=== PATIENT | male | born 1930 | race Caucasian/White ===

== ENCOUNTER 2017-04-07 09:10 | Inpatient (IN) | payer OTHER, MEDICAID ==
[~2017-04-07] VITALS: Ht 170.2 cm; Wt 71.0 kg
[~2017-04-07 09:10] MED LIST: ARICEPT10 MG PO; BENAZEPRIL HYDR20 M1 PO; BENAZEPRIL HYDR40 M1 PO; BENZONATATE200 MG PO; FLA500 PO; GLIPIZIDE10 M2 PO; GLU10 PO; GLU10XL PO; GLU500 PO; LAC PO; LANTI SQ; LEVAQUIN750 MG PO; LEVOFLOXACIN500 M1 PO; LOT10 PO; METFORMIN ER500 M1 PO; MUCINEX600 MG PO; NAMENDA10 M2 PO; PLA75 PO; PRO40 PO; PROAIR HFA0.09 MG/A1 INH; SIMVASTATIN20 M1 PO; TOP50 PO; XALATAN2.5 ML OU; XALOS OU; ZOC20 PO
[2017-04-07 10:14] LABS: BASOPHIL % 0.5 % (0-2); PLATELET COUNT 198 x10^3mcL (130-400)
[2017-04-07 10:22] LABS: RED CELL DISTRIBUTION WIDTH 14.9 % (11.5-14.5)
[2017-04-07 11:08] LABS: CALCIUM 9.2 mg/dL (8.5-10.1); CARBON DIOXIDE 24.8 mmol/L (21-32); CHLORIDE SERUM 100 mmol/L (98-107); CREATININE SERUM 1.2 mg/dL (0.7-1.3); GLUCOSE SERUM 166 mg/dL (74-106); POTASSIUM SERUM 4.2 mmol/L (3.5-5.1); SODIUM SERUM 136 mmol/L (136-145)
[2017-04-07 11:13] LABS: ALBUMIN 3.7 g/dL (3.4-5.0); ALKALINE PHOSPHATASE 95 U/L (46-116); ALT/SGPT 33 U/L (16-63); AST/SGOT 44 U/L (15-37); BILIRUBIN TOTAL 0.63 mg/dL (0.20-1.00); CHOLESTEROL 130 mg/dL (<200); HDL CHOLESTEROL 52 mg/dL (40-60); TOTAL PROTEIN, SERUM 7.1 g/dL (6.4-8.2)
[2017-04-07 12:34] LABS: microscopic required? YES; urine erythrocyte NEGATIVE (NEGATIVE)
[2017-04-07] MEDS ORDERED: HUMALOG100 U/ML SC (13:56)
[2017-04-07] MEDS ORDERED: BENAZEPRIL HYDR20 M1 PO (13:57)
[2017-04-07] MEDS ORDERED: RANITIDINE HCL150 M1 (13:58)
[2017-04-07 15:06] VITALS: BP 119/70
[2017-04-07 15:32] LABS: T3 TOTAL 1.06 ng/mL
[2017-04-07 15:43] LABS: PHOSPHOROUS 3.5 mg/dL (2.5-4.9)
[2017-04-07 15:45] LABS: CHOLESTEROL/HDL RATIO 2.5; FREE T4 1.15 ng/dL (0.76-1.46); FREE THYROXINE INDEX 3.3 ug/dL (1.4-4.5); T4(THYROXINE) 8.8 ug/dL (4.7-13.3)
[2017-04-07 21:01] VITALS: BP 131/61
[2017-04-08 05:48] VITALS: BP 112/49
[2017-04-08 09:53] VITALS: BP 117/55
[2017-04-08 11:21] VITALS: Ht 170.2 cm; Wt 71.0 kg
[2017-04-08 13:32] VITALS: BP 123/54
[2017-04-08 17:51] VITALS: BP 145/51
[2017-04-08 21:08] VITALS: BP 156/64
[2017-04-09] VITALS (8 sets, daily range): BP systolic 121–159; BP diastolic 63–76
[2017-04-09 06:40] LABS: BASOPHIL % 0.5 % (0-2); PLATELET COUNT 133 x10^3mcL (130-400)
[2017-04-09 06:45] LABS: RED CELL DISTRIBUTION WIDTH 15.4 % (11.5-14.5)
[2017-04-09 06:53] LABS: CALCIUM 8.3 mg/dL (8.5-10.1); CARBON DIOXIDE 25.9 mmol/L (21-32); CHLORIDE SERUM 103 mmol/L (98-107); GLUCOSE SERUM 169 mg/dL (74-106); POTASSIUM SERUM 3.7 mmol/L (3.5-5.1); SODIUM SERUM 136 mmol/L (136-145)
[2017-04-09] MEDS ORDERED: ROC1I IV (14:46)
[2017-04-09] MEDS ORDERED: HUMALOG100 U/ML SC (15:08)
== END 2017-04-09 23:50 | DRG 871 ==
LOC: ED 09:10 → DU 13:55
PROVIDERS: Emergency Medicine; Family Medicine; ADMIT Family Medicine
DX: R78.81 Bacteremia (principal); G93.41 Metabolic encephalopathy; N17.0 Acute kidney failure with tubular necrosis; N39.0 Urinary tract infection, site not specified; B96.20 Unspecified Escherichia coli [E. coli] as the cause of diseases classified elsewhere; G30.9 Alzheimer's disease, unspecified; F02.80 Dementia in other diseases classified elsewhere, unspecified severity, without behavioral disturbance, psychotic disturbance, mood disturbance, and anxiety; E11.65 Type 2 diabetes mellitus with hyperglycemia; E11.51 Type 2 diabetes mellitus with diabetic peripheral angiopathy without gangrene; I10 Essential (primary) hypertension; D64.9 Anemia, unspecified; E78.5 Hyperlipidemia, unspecified; Z68.24 Body mass index [BMI] 24.0-24.9, adult; Z16.24 Resistance to multiple antibiotics; Z85.46 Personal history of malignant neoplasm of prostate; Z86.73 Personal history of transient ischemic attack (TIA), and cerebral infarction without residual deficits; Z79.4 Long term (current) use of insulin
CPT/HCPCS: 83880; 84439; 94150; J0696; J1815; J1956; J7030; J7613; J7620; Q0092

== ENCOUNTER 2017-06-30 19:39 | Emergency (ER) | payer OTHER, MEDICAID ==
[~2017-06-30] VITALS: Ht 167.6 cm; Wt 72.6 kg
[~2017-06-30 19:39] MED LIST changes: +HUMALOG100 U/ML SC; +RANITIDINE HCL150 M1; +ROC1I IV
[2017-06-30 20:53] LABS: CALCIUM 8.6 mg/dL (8.5-10.1); CARBON DIOXIDE 24.6 mmol/L (21-32); CHLORIDE SERUM 102 mmol/L (98-107); CREATININE SERUM 1.3 mg/dL (0.7-1.3); GLUCOSE SERUM 77 mg/dL (74-106); POTASSIUM SERUM 3.9 mmol/L (3.5-5.1); SODIUM SERUM 131 mmol/L (136-145)
[2017-06-30 20:58] LABS: BASOPHIL % 0.2 % (0-2); PLATELET COUNT 227 x10^3mcL (130-400)
[2017-06-30 21:04] LABS: RED CELL DISTRIBUTION WIDTH 15.3 % (11.5-14.5)
[2017-06-30 21:07] LABS: ALKALINE PHOSPHATASE 68 U/L (46-116); ALT/SGPT 28 U/L (16-63); AST/SGOT 27 U/L (15-37); BILIRUBIN TOTAL 0.41 mg/dL (0.20-1.00)
[2017-06-30 21:09] LABS: ALBUMIN 2.9 g/dL (3.4-5.0)
[2017-06-30 21:23] LABS: CK-MB 0.8 ng/mL (0-3.6)
[2017-06-30 21:43] LABS: TOTAL PROTEIN, SERUM 5.9 g/dL (6.4-8.2)
[2017-06-30 22:55] LABS: microscopic required? YES; urine erythrocyte NEGATIVE (NEGATIVE)
[2017-07-01 00:07] VITALS: BP 124/69
== END 2017-07-01 00:07 | disposition short-term general hospital (02) ==
LOC: ED 19:39
PROVIDERS: Emergency Medicine
DX: I62.00 Nontraumatic subdural hemorrhage, unspecified (principal); E11.9 Type 2 diabetes mellitus without complications; J45.909 Unspecified asthma, uncomplicated; I10 Essential (primary) hypertension; K21.9 Gastro-esophageal reflux disease without esophagitis; H40.9 Unspecified glaucoma; Z88.0 Allergy status to penicillin; Z88.1 Allergy status to other antibiotic agents; Z88.8 Allergy status to other drugs, medicaments and biological substances
CPT/HCPCS: 36415; 83880

== ENCOUNTER 2017-07-29 16:41 | Emergency (ER) | payer OTHER, MEDICAID ==
[~2017-07-29] VITALS: Ht 165.1 cm; Wt 70.3 kg
[2017-07-29 16:46] VITALS: Ht 165.1 cm; Wt 70.3 kg
[2017-07-29] MEDS ORDERED: ARICEPT10 MG PO (17:28)
[2017-07-29] MEDS ORDERED: LUMIGAN2.5 M1 OU (17:28)
[2017-07-29 18:15] LABS: BASOPHIL % 0.1 % (0-2); PLATELET COUNT 246 x10^3mcL (130-400)
[2017-07-29 18:17] LABS: RED CELL DISTRIBUTION WIDTH 18.1 % (11.5-14.5)
[2017-07-29 18:24] LABS: CALCIUM 8.8 mg/dL (8.5-10.1); CARBON DIOXIDE 22.2 mmol/L (21-32); CHLORIDE SERUM 97 mmol/L (98-107); CREATININE SERUM 1.2 mg/dL (0.7-1.3); GLUCOSE SERUM 232 mg/dL (74-106); SODIUM SERUM 131 mmol/L (136-145)
[2017-07-29 18:34] LABS: ALBUMIN 3.5 g/dL (3.4-5.0); ALKALINE PHOSPHATASE 92 U/L (46-116); ALT/SGPT 27 U/L (16-63); AST/SGOT 26 U/L (15-37); BILIRUBIN TOTAL 0.7 mg/dL (0.20-1.00); TOTAL PROTEIN, SERUM 7.1 g/dL (6.4-8.2)
[2017-07-29 18:45] LABS: CK-MB 0.5 ng/mL (0-3.6)
[2017-07-29 19:09] LABS: microscopic required? YES; urine erythrocyte TRACE (NEGATIVE)
[2017-07-29 21:51] VITALS: BP 117/61
[2017-07-30] MEDS ORDERED: SIMVASTATIN10 M1 PO (15:54)
[2017-07-30] MEDS ORDERED: BENAZEPRIL HYDR20 M1 PO (15:54)
[2017-07-30] MEDS ORDERED: BETIMOL5 M1 OU (15:55)
[2017-07-30] MEDS ORDERED: NOR5 PO (15:55)
[2017-07-30] MEDS ORDERED: LEVAQUIN500 M1 PO (15:56)
[2017-07-30] MEDS ORDERED: ACETAMIN-CODE12.5 ML (15:56)
[2017-07-30] MEDS ORDERED: SUNMARK PAIN R325 MG PO (15:57)
[2017-07-30] MEDS ORDERED: MULTIVITAMIN1 SGL PO (15:57)
[2017-07-30] MEDS ORDERED: PHARMASSURE VI500 MG PO (15:57)
[2017-07-30] MEDS ORDERED: SIMVASTATIN20 M1 PO (15:58)
== END 2017-07-29 21:51 | disposition home or self-care (01) ==
LOC: ED 16:41
DX: J18.9 Pneumonia, unspecified organism (principal); I10 Essential (primary) hypertension; E11.9 Type 2 diabetes mellitus without complications; E78.00 Pure hypercholesterolemia, unspecified; Z88.0 Allergy status to penicillin; Z88.8 Allergy status to other drugs, medicaments and biological substances; Z88.6 Allergy status to analgesic agent
CPT/HCPCS: 83880; 87804; J1956; J7030; J7040

== ENCOUNTER 2017-07-30 11:36 | Inpatient (IN) | payer OTHER, MEDICAID ==
[~2017-07-30] VITALS: Ht 170.2 cm; Wt 73.6 kg
[~2017-07-30 11:36] MED LIST changes: +LUMIGAN2.5 M1 OU
[2017-07-30 13:41] LABS: BASOPHIL % 0.7 % (0-2); PLATELET COUNT 200 x10^3mcL (130-400)
[2017-07-30 13:50] LABS: CALCIUM 8.7 mg/dL (8.5-10.1); CARBON DIOXIDE 20.6 mmol/L (21-32); CHLORIDE SERUM 99 mmol/L (98-107); CREATININE SERUM 1.1 mg/dL (0.7-1.3); GLUCOSE SERUM 170 mg/dL (74-106); SODIUM SERUM 130 mmol/L (136-145)
[2017-07-30 13:55] LABS: ALKALINE PHOSPHATASE 79 U/L (46-116); ALT/SGPT 15 U/L (16-63); AST/SGOT 22 U/L (15-37); BILIRUBIN TOTAL 0.71 mg/dL (0.20-1.00)
[2017-07-30 13:57] LABS: UA SPECIFIC GRAVITY 1.025 (1.005-1.035); microscopic required? YES; urine erythrocyte 1+ (NEGATIVE)
[2017-07-30 14:01] LABS: ALBUMIN 2.9 g/dL (3.4-5.0); TOTAL PROTEIN, SERUM 6.1 g/dL (6.4-8.2)
[2017-07-30 14:20] LABS: RED CELL DISTRIBUTION WIDTH 17.8 % (11.5-14.5)
[2017-07-30] MEDS ORDERED: BENAZEPRIL HYDR20 M1 PO (15:54)
[2017-07-30] MEDS ORDERED: SIMVASTATIN10 M1 PO (15:54)
[2017-07-30] MEDS ORDERED: BETIMOL5 M1 OU (15:55)
[2017-07-30] MEDS ORDERED: NOR5 PO (15:55)
[2017-07-30] MEDS ORDERED: ACETAMIN-CODE12.5 ML (15:56)
[2017-07-30] MEDS ORDERED: LEVAQUIN500 M1 PO (15:56)
[2017-07-30] MEDS ORDERED: MULTIVITAMIN1 SGL PO (15:57)
[2017-07-30] MEDS ORDERED: PHARMASSURE VI500 MG PO (15:57)
[2017-07-30] MEDS ORDERED: SUNMARK PAIN R325 MG PO (15:57)
[2017-07-30] MEDS ORDERED: SIMVASTATIN20 M1 PO (15:58)
[2017-07-30 16:03] VITALS: BP 136/77
[2017-07-30 16:36] VITALS: BP 151/64
[2017-07-30 17:55] LABS: T3 TOTAL 0.49 ng/mL
[2017-07-30 18:04] LABS: CHOLESTEROL/HDL RATIO 2.2; MAGNESIUM 1.9 mg/dL (1.8-2.4); PHOSPHOROUS 3.1 mg/dL (2.5-4.9)
[2017-07-30 18:10] LABS: FREE T4 1.24 ng/dL (0.76-1.46); FREE THYROXINE INDEX 2.4 ug/dL (1.4-4.5); T4(THYROXINE) 6.1 ug/dL (4.7-13.3)
[2017-07-30 21:50] VITALS: BP 117/63
[2017-07-31 03:08] LABS: BASOPHIL % 0.4 % (0-2); PLATELET COUNT 170 x10^3mcL (130-400)
[2017-07-31 03:14] LABS: RED CELL DISTRIBUTION WIDTH 17.7 % (11.5-14.5)
[2017-07-31 03:51] LABS: CALCIUM 7.9 mg/dL (8.5-10.1); CARBON DIOXIDE 24.8 mmol/L (21-32); CHLORIDE SERUM 105 mmol/L (98-107); CREATININE SERUM 1.1 mg/dL (0.7-1.3); GLUCOSE SERUM 67 mg/dL (74-106); POTASSIUM SERUM 3.6 mmol/L (3.5-5.1); SODIUM SERUM 136 mmol/L (136-145)
[2017-07-31 04:47] VITALS: BP 134/64
[2017-07-31 09:40] VITALS: BP 142/70
[2017-07-31 13:25] VITALS: BP 121/65
[2017-07-31 17:25] VITALS: BP 105/53
[2017-07-31 22:21] VITALS: BP 124/68
[2017-08-01 06:22] VITALS: BP 133/55
[2017-08-01 06:38] LABS: CALCIUM 8.3 mg/dL (8.5-10.1); CHLORIDE SERUM 104 mmol/L (98-107); CREATININE SERUM 0.9 mg/dL (0.7-1.3); GLUCOSE SERUM 156 mg/dL (74-106); MAGNESIUM 1.7 mg/dL (1.8-2.4); PHOSPHOROUS 3.1 mg/dL (2.5-4.9); POTASSIUM SERUM 3.6 mmol/L (3.5-5.1); SODIUM SERUM 136 mmol/L (136-145)
[2017-08-01 06:44] LABS: BASOPHIL % 0.7 % (0-2); PLATELET COUNT 182 x10^3mcL (130-400)
[2017-08-01 06:48] LABS: RED CELL DISTRIBUTION WIDTH 16.8 % (11.5-14.5)
[2017-08-01 09:53] VITALS: BP 136/64
[2017-08-01 13:01] VITALS: BP 145/76
[2017-08-01 17:48] VITALS: BP 116/63
[2017-08-01 21:11] VITALS: BP 141/72
[2017-08-02 05:24] VITALS: BP 138/75
[2017-08-02 06:53] LABS: BASOPHIL % 1.9 % (0-2); PLATELET COUNT 202 x10^3mcL (130-400)
[2017-08-02 06:59] LABS: RED CELL DISTRIBUTION WIDTH 16.8 % (11.5-14.5)
[2017-08-02 07:14] LABS: CALCIUM 8.6 mg/dL (8.5-10.1); CARBON DIOXIDE 24.1 mmol/L (21-32); CHLORIDE SERUM 105 mmol/L (98-107); CREATININE SERUM 0.8 mg/dL (0.7-1.3); MAGNESIUM 1.8 mg/dL (1.8-2.4); PHOSPHOROUS 3.4 mg/dL (2.5-4.9); POTASSIUM SERUM 3.4 mmol/L (3.5-5.1); SODIUM SERUM 139 mmol/L (136-145)
[2017-08-02 08:06] LABS: GLUCOSE SERUM 52 mg/dL (74-106)
[2017-08-02] MEDS ORDERED: CEFDINIR300 M1 PO (11:56)
[2017-08-02] MEDS ORDERED: LAC PO (11:56)
[2017-08-02 12:44] VITALS: BP 135/67
== END 2017-08-02 14:03 | disposition home or self-care (01) | DRG 871 ==
LOC: ED 11:36 → DU 15:10
PROVIDERS: Emergency Medicine; Family Medicine
DX: R78.81 Bacteremia (principal); N17.0 Acute kidney failure with tubular necrosis; E87.1 Hypo-osmolality and hyponatremia; E44.0 Moderate protein-calorie malnutrition; J44.1 Chronic obstructive pulmonary disease with (acute) exacerbation; R06.03 Acute respiratory distress; R80.9 Proteinuria, unspecified; R31.9 Hematuria, unspecified; E11.51 Type 2 diabetes mellitus with diabetic peripheral angiopathy without gangrene; E11.65 Type 2 diabetes mellitus with hyperglycemia; I10 Essential (primary) hypertension; G30.9 Alzheimer's disease, unspecified; F02.80 Dementia in other diseases classified elsewhere, unspecified severity, without behavioral disturbance, psychotic disturbance, mood disturbance, and anxiety; M71.21 Synovial cyst of popliteal space [Baker], right knee; D64.9 Anemia, unspecified; Z68.25 Body mass index [BMI] 25.0-25.9, adult
CPT/HCPCS: 83880; 84439; J0696; J1815; J1956; J3490; J7030; J7620; Q0092

== ENCOUNTER 2017-12-03 20:59 | Inpatient (IN) | payer OTHER, MEDICAID ==
[~2017-12-03] VITALS: Ht 165.1 cm; Wt 71.7 kg
[~2017-12-03 20:59] MED LIST changes: +ACETAMIN-CODE12.5 ML; +BETIMOL5 M1 OU; +CEFDINIR300 M1 PO; +COL100 PO; +LEVAQUIN500 M1 PO; +MULTIVITAMIN1 SGL PO; +NOR5 PO; +PHARMASSURE VI500 MG PO; +SIMVASTATIN10 M1 PO; +SUNMARK PAIN R325 MG PO
[2017-12-03 21:13] VITALS: Ht 165.1 cm; Wt 71.7 kg
[2017-12-03 23:09] LABS: BASOPHIL % 0.1 % (0-2)
[2017-12-03 23:12] LABS: PLATELET COUNT 564 x10^3mcL (130-400); RED CELL DISTRIBUTION WIDTH 15.4 % (11.5-14.5)
[2017-12-03 23:18] LABS: CALCIUM 8.3 mg/dL (8.5-10.1); CARBON DIOXIDE 25.4 mmol/L (21-32); CHLORIDE SERUM 98 mmol/L (98-107); CREATININE SERUM 1.2 mg/dL (0.7-1.3); GLUCOSE SERUM 220 mg/dL (74-106); SODIUM SERUM 133 mmol/L (136-145)
[2017-12-03 23:32] LABS: ALKALINE PHOSPHATASE 194 U/L (46-116); ALT/SGPT 35 U/L (16-63); AST/SGOT 51 U/L (15-37); BILIRUBIN TOTAL 0.56 mg/dL (0.20-1.00); FREE T4 1.29 ng/dL (0.76-1.46)
[2017-12-03 23:38] LABS: ALBUMIN 2.3 g/dL (3.4-5.0); TOTAL PROTEIN, SERUM 6.1 g/dL (6.4-8.2)
[2017-12-03 23:39] LABS: LIPASE 2838 IU/L (73-393)
[2017-12-04 00:27] LABS: microscopic required? YES; urine erythrocyte TRACE (NEGATIVE)
[2017-12-04] MEDS ORDERED: HUMALOG100 U/ML SC (00:44)
[2017-12-04 01:05] LABS: MAGNESIUM 1.9 mg/dL (1.8-2.4); PHOSPHOROUS 3.1 mg/dL (2.5-4.9)
[2017-12-04 01:08] LABS: CHOLESTEROL/HDL RATIO 2.9
[2017-12-04 01:34] VITALS: BP 142/67
[2017-12-04] MEDS ORDERED: NEURONTIN100 MG PO (03:06)
[2017-12-04 05:14] VITALS: BP 128/73
[2017-12-04 06:40] LABS: BASOPHIL % 0.2 % (0-2)
[2017-12-04 06:49] LABS: CALCIUM 8.2 mg/dL (8.5-10.1); CARBON DIOXIDE 23.9 mmol/L (21-32); CHLORIDE SERUM 105 mmol/L (98-107); GLUCOSE SERUM 155 mg/dL (74-106); LIPASE 1296 IU/L (73-393); SODIUM SERUM 135 mmol/L (136-145)
[2017-12-04 06:59] LABS: PLATELET COUNT 480 x10^3mcL (130-400); RED CELL DISTRIBUTION WIDTH 15.2 % (11.5-14.5)
[2017-12-04 07:03] LABS: AMYLASE 276 U/L (25-115)
[2017-12-04 08:00] VITALS: BP 122/65
[2017-12-04 12:40] VITALS: BP 136/71
[2017-12-04 16:59] VITALS: BP 119/63
[2017-12-04] MEDS ORDERED: LEVAQUIN500 M1 PO (17:24)
== END 2017-12-04 18:53 | disposition home or self-care (01) | DRG 177 ==
LOC: ED 20:59 → DU 12-04 00:12
PROVIDERS: Emergency Medicine; Family Medicine
DX: J69.0 Pneumonitis due to inhalation of food and vomit (principal); N17.0 Acute kidney failure with tubular necrosis; E43 Unspecified severe protein-calorie malnutrition; E87.1 Hypo-osmolality and hyponatremia; K86.2 Cyst of pancreas; K29.00 Acute gastritis without bleeding; E11.65 Type 2 diabetes mellitus with hyperglycemia; G30.9 Alzheimer's disease, unspecified; F02.80 Dementia in other diseases classified elsewhere, unspecified severity, without behavioral disturbance, psychotic disturbance, mood disturbance, and anxiety; I48.91 Unspecified atrial fibrillation; R80.9 Proteinuria, unspecified; I10 Essential (primary) hypertension; K76.9 Liver disease, unspecified; D69.59 Other secondary thrombocytopenia; R31.9 Hematuria, unspecified; D64.9 Anemia, unspecified; E78.5 Hyperlipidemia, unspecified; Z79.4 Long term (current) use of insulin; Z68.27 Body mass index [BMI] 27.0-27.9, adult; Z85.46 Personal history of malignant neoplasm of prostate; Z85.01 Personal history of malignant neoplasm of esophagus
CPT/HCPCS: 83880; 84439; J1815; J1956; J7030; J7040; Q0092; Q9967

== ENCOUNTER 2017-12-14 12:14 | Observation (INO) | payer OTHER, MEDICAID ==
[~2017-12-14] VITALS: Ht 165.1 cm; Wt 70.5 kg
[~2017-12-14 12:14] MED LIST changes: +NEURONTIN100 MG PO
[2017-12-14 12:23] VITALS: Ht 165.1 cm; Wt 70.5 kg
[2017-12-14 12:58] LABS: BASOPHIL % 0.5 % (0-2)
[2017-12-14 13:08] LABS: CALCIUM 8.7 mg/dL (8.5-10.1); CARBON DIOXIDE 28.3 mmol/L (21-32); CHLORIDE SERUM 106 mmol/L (98-107); CREATININE SERUM 1.1 mg/dL (0.7-1.3); GLUCOSE SERUM 141 mg/dL (74-106); POTASSIUM SERUM 3.6 mmol/L (3.5-5.1); SODIUM SERUM 142 mmol/L (136-145)
[2017-12-14 13:19] LABS: ALKALINE PHOSPHATASE 224 U/L (46-116); ALT/SGPT 31 U/L (16-63); AST/SGOT 18 U/L (15-37); BILIRUBIN TOTAL 0.5 mg/dL (0.20-1.00); TOTAL PROTEIN, SERUM 6.8 g/dL (6.4-8.2); URIC ACID 2.4 mg/dL (3.5-7.2)
[2017-12-14 13:21] LABS: ALBUMIN 2.8 g/dL (3.4-5.0); CHOLESTEROL 103 mg/dL (<200); HDL CHOLESTEROL 34 mg/dL (40-60)
[2017-12-14 13:35] LABS: PLATELET COUNT 572 x10^3mcL (130-400); RED CELL DISTRIBUTION WIDTH 15.7 % (11.5-14.5)
[2017-12-14 15:12] LABS: MAGNESIUM 2.2 mg/dL (1.8-2.4)
[2017-12-14 15:20] VITALS: BP 160/71
[2017-12-14 20:37] VITALS: BP 138/79
[2017-12-14 20:38] VITALS: BP 129/66
[2017-12-14 21:15] LABS: microscopic required? NO
[2017-12-14 21:24] LABS: urine erythrocyte NEGATIVE (NEGATIVE)
[2017-12-15 05:31] VITALS: BP 149/71
[2017-12-15 06:24] LABS: CALCIUM 8.4 mg/dL (8.5-10.1); CARBON DIOXIDE 24.9 mmol/L (21-32); CHLORIDE SERUM 108 mmol/L (98-107); CREATININE SERUM 0.9 mg/dL (0.7-1.3); GLUCOSE SERUM 60 mg/dL (74-106); MAGNESIUM 1.9 mg/dL (1.8-2.4); PHOSPHOROUS 3.3 mg/dL (2.5-4.9); POTASSIUM SERUM 3.7 mmol/L (3.5-5.1); SODIUM SERUM 140 mmol/L (136-145)
[2017-12-15 06:45] LABS: PLATELET COUNT 524 x10^3mcL (130-400); RED CELL DISTRIBUTION WIDTH 15.4 % (11.5-14.5)
[2017-12-15 09:21] VITALS: BP 116/61
[2017-12-15 12:33] VITALS: BP 129/66
[2017-12-15 17:05] VITALS: BP 136/69
[2017-12-15 17:36] VITALS: BP 136/69
== END 2017-12-15 18:27 | disposition hospice, home (50) | DRG 374 ==
LOC: ED 12:14 → DU 13:53
PROVIDERS: Emergency Medicine; Family Medicine; Internal Medicine
PROC: 0D738ZZ Dilation of Lower Esophagus, Via Natural or Artificial Opening Endoscopic (ICD-10-PCS; principal; 2017-12-15 08:15)
DX: C15.5 Malignant neoplasm of lower third of esophagus (principal); E43 Unspecified severe protein-calorie malnutrition; J98.11 Atelectasis; C78.7 Secondary malignant neoplasm of liver and intrahepatic bile duct; E11.65 Type 2 diabetes mellitus with hyperglycemia; E11.40 Type 2 diabetes mellitus with diabetic neuropathy, unspecified; I10 Essential (primary) hypertension; D47.3 Essential (hemorrhagic) thrombocythemia; D63.0 Anemia in neoplastic disease; N28.1 Cyst of kidney, acquired; I35.1 Nonrheumatic aortic (valve) insufficiency; I36.1 Nonrheumatic tricuspid (valve) insufficiency; I37.1 Nonrheumatic pulmonary valve insufficiency; E87.8 Other disorders of electrolyte and fluid balance, not elsewhere classified; H40.9 Unspecified glaucoma; Z66 Do not resuscitate; F03.90 Unspecified dementia, unspecified severity, without behavioral disturbance, psychotic disturbance, mood disturbance, and anxiety; Z68.25 Body mass index [BMI] 25.0-25.9, adult
CPT/HCPCS: 43235; 83880; C1769; C9113; G0378; J1200; J1610; J1815; J2250; J2310; J3010; J3490; J7030; Q0092